=== PATIENT | male | born 1965 | race Caucasian/White ===

== ENCOUNTER → 2022-07-21 16:19 | Outpatient (CLI) | payer OTHER, SELFPAY ==
--- NOTE | ~2022-07-21 | US_ITS ---
US thyroid INDICATION: Thyroid nodule TECHNIQUE: Real-time sonographic images of the thyroid gland were obtained. COMPARISON: No prior studies for comparison. FINDINGS: The right thyroid lobe measures 4.7 x 2.1 x 0.6 cm. The left thyroid lobe measures 4.4 x 1 .7 x 1.6 cm. There is heterogeneous echotexture and echogenicity throughout the thyroid gland. In the right thyroid lobe there is a small oval hypoechoic mass which is solid, wider than tall, smoothly m arginated without echogenic foci, measuring 7 x 6 x 5 mm, TR 4. Normal vascular flow is present. IMPRESSION: 1. Right thyroid nodule measuring 7 mm, TR 4, which does not meet sonographic criteria for biopsy. Reviewed, dictated and finalized at location A. KE ON MACHINE OPERATOR
== END ==
PROVIDERS: PCP Family Medicine; Visit Provider Family Medicine
DX: E04.1 Nontoxic single thyroid nodule (principal)
CPT/HCPCS: 76536

== ENCOUNTER → 2023-03-28 16:33 | Outpatient (CLI) | payer OTHER, SELFPAY ==
--- NOTE | ~2023-03-28 | XR_ITS ---
EXAM: XR shoulder LT min 2V DATE: 03/28/2023 16:49 HISTORY: M25.512 - Pain in left shoulder . COMPARISON: None available. FINDINGS: Normal mineralization. No fracture or dislocation. No lytic or blastic lesion. Normal AC j oint. Mild subchondral sclerosis in the glenohumeral joint. No erosion or periosteal change. Soft tis sues within normal limits. IMPRESSION: Mild left humeral joint osteoarthritis. Reviewed, dictated and finalized at location K.
== END ==
PROVIDERS: PCP Family Medicine; Visit Provider Physician Assistant
DX: M19.012 Primary osteoarthritis, left shoulder (principal)
CPT/HCPCS: 73030

== ENCOUNTER 2023-04-07 07:44 | Outpatient (CLI) | payer OTHER, SELFPAY ==
--- NOTE | ~2023-04-07 | MR_ITS ---
EXAMINATION: MR shoulder LT wo con DATE: 04/07/2023 09:15 INDICATION: Left shoulder pain TECHNIQUE: Magnetic resonance imaging (MRI) of the left shoulder was performed without intravenous co ntrast. Sequences included axial PD-weighted FS FSE, coronal oblique PD-weighted FS FSE, coronal obli que T2-weighted FS FSE, sagittal PD-weighted FS FSE, and sagittal T1-weighted SE. COMPARISON: Left shoulder radiographs dated 03/28/2023 FINDINGS: Coracoacromial arch: The acromion undersurface is curved in morphology (type II). The coracoacromial ligament is normal. M ild acromioclavicular osteoarthritis. Rotator cuff: Mild infraspinatus and posterior supraspinatus tendinopathy. There is a very small partial-thickness intrasubstance tear of the conjoined portion of the supraspinatus and infraspinatus tendons measuring approximately 3 mm AP and involving no greater than one third of the tendon thickness along the foot plate at the junction of the superior and middle facets of the greater tuberosity. The teres minor te ndon is normal. There is mild subscapularis tendinopathy with longitudinal split tear at the cephalad third of the tendon extending up to 2 cm medially from the lateral margin of the lesser tuberosity w hich extends between the portion of the tendon attached to the lesser tuberosity and the more superfi cial portion of the tendon which is attached to the still intact transverse humeral ligament. There i s subluxation of the long head of the biceps tendon across the cephalad medial rim of the intertuberc ular groove and into the split tear defect. Normal rotator cuff muscle bulk and signal. Biceps tendon, glenoid labrum and glenohumeral cartilage: There is moderate tenosynovitis surrounding the extra articular portion of the long head biceps tendo n. There is mild tendinopathy, longitudinal split tearing and mild partial-thickness tearing involvin g approximately 25% of the cross-sectional area of the tendon at the level of the intertubercular sherron ove. There is amorphous increased signal consistent with degeneration at the anterior to anteroinferi or glenoid labrum. There is a more discrete linear tear at the base of the posterosuperior labrum. Th e posterior labrum is diminutive and has been partially replaced by marginal osteophytes along the po sterior rim of the glenoid. There is partial thickness cartilage loss with underlying subarticular cy stlike changes along the posterior and posterior inferior rim of the glenoid. There is additional par tial thickness cartilage loss without degenerative subchondral changes along the inferomedial aspect of the humeral head. Fluid: Small glenohumeral joint effusion with mild synovitis at the axillary recess and deep subscapular rec ess. No loose osteochondral bodies. No abnormal increased fluid signal in the subacromial/subdeltoid bursa to suggest bursitis. Bones: Bone alignment is normal. No fracture or pathologic marrow replacing process. Mild cystic change at t he middle facet of the greater tuberosity likely related to chronic rotator cuff disease. IMPRESSION: 1. Mild glenohumeral osteoarthritis with high-grade chondral malacia along the posterior to posterior inferior glenoid and with relatively diffuse labral degeneration. 2. Bicipital tenosynovitis with mild tendinopathy and both longitudinal split tearing and mild partia l-thickness tearing of the long head biceps tendon. 3. Mild rotator cuff tendinopathy with very small partial-thickness intrasubstance tear at the insert ion of the conjoined portion of the supraspinatus and infraspinatus tendons and with small longitudin al split tear at the cephalad third of the subscapularis tendon. Reviewed, dictated and finalized at location A.
== END 2023-04-07 07:45 | disposition home or self-care (01) ==
PROVIDERS: PCP Family Medicine; Visit Provider Physician Assistant
DX: M25.512 Pain in left shoulder (principal); M19.012 Primary osteoarthritis, left shoulder; M65.812 Other synovitis and tenosynovitis, left shoulder; S46.812A Strain of other muscles, fascia and tendons at shoulder and upper arm level, left arm, initial encounter; T14.90XA Injury, unspecified, initial encounter
CPT/HCPCS: 73221

== ENCOUNTER 2023-04-19 13:23 | Outpatient (CLI) | payer OTHER, SELFPAY ==
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
== END 2023-04-19 13:24 | disposition home or self-care (01) ==
LOC: ANHIMG 13:25
PROVIDERS: PCP Family Medicine; Visit Provider Orthopaedic Surgery
DX: M19.012 Primary osteoarthritis, left shoulder (principal)
CPT/HCPCS: 20610; 77002; J1040

== ENCOUNTER 2023-09-28 09:51 | Emergency (ER) | payer OTHER, SELFPAY ==
[2023-09-28] VITALS (9 sets, daily range): BP systolic 141–160; BP diastolic 94–102; PULSE 61–75; RESP 12–20; TEMP 36.7; O2SAT 97–100
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
[2023-09-28] MEDS: HYDROcodone/acetaminophen (*CRX) 5-325 MG TABLET 1 TAB PO (13:01)
== END 2023-09-28 13:43 | disposition home or self-care (01) ==
PROVIDERS: Emergency Provider Emergency Medicine; PCP Family Medicine
DX: S32.040A Wedge compression fracture of fourth lumbar vertebra, initial encounter for closed fracture (principal); S00.81XA Abrasion of other part of head, initial encounter; Z87.891 Personal history of nicotine dependence; M47.814 Spondylosis without myelopathy or radiculopathy, thoracic region; M47.816 Spondylosis without myelopathy or radiculopathy, lumbar region; V43.52XA Car driver injured in collision with other type car in traffic accident, initial encounter
CPT/HCPCS: 70450; 71045; 72125; 72128; 72131; 73502; 99284; A9270

== ENCOUNTER 2023-11-07 13:27 | Outpatient (CLI) | payer OTHER, SELFPAY ==
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
== END 2023-11-07 13:28 | disposition home or self-care (01) ==
LOC: ANHIMG 13:33
PROVIDERS: PCP Family Medicine; Visit Provider Physician Assistant
DX: S32.040A Wedge compression fracture of fourth lumbar vertebra, initial encounter for closed fracture (principal); X58.XXXA Exposure to other specified factors, initial encounter
CPT/HCPCS: 72100

== ENCOUNTER 2023-12-04 17:37 | Outpatient (CLI) | payer OTHER, SELFPAY ==
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
== END 2023-12-04 17:38 | disposition home or self-care (01) ==
LOC: ANHIMG 17:39
PROVIDERS: PCP Family Medicine; Visit Provider Physician Assistant
DX: S32.040A Wedge compression fracture of fourth lumbar vertebra, initial encounter for closed fracture (principal); X58.XXXA Exposure to other specified factors, initial encounter; M47.896 Other spondylosis, lumbar region
CPT/HCPCS: 72100